=== PATIENT | male | born 1965 | race Caucasian/White ===

== ENCOUNTER 2017-06-01 10:45 | Day surgery (SDC) | payer BC ==
[~2017-06-01 10:45] MED LIST: RINGER'S SOLUTION,LACTATED 1,000 ML IV PRN; ceFAZolin SODIUM 2 GM in DEXTROSE 5 % IN WATER 50 ML IV PRN
[2017-06-01] MEDS ORDERED: BUPIVACAINE HCL/EPINEPHRINE 50 ML VIAL IJ ONE ×2 (12:40)
[2017-06-01] MEDS ORDERED: RINGER'S SOLUTION,LACTATED 1,000 ML IV ONE ×2 (13:08)
[2017-06-01] MEDS ORDERED: BACITRACIN ZINC 30 APPL TUBE TP ONE ×2 (14:05→14:15)
[2017-06-01] MEDS ORDERED: ONDANSETRON HCL/PF 2 MG/ML VIAL IV ONE (14:43)
[2017-06-01] MEDS ORDERED: RINGER'S SOLUTION,LACTATED 1,000 ML IV PRN (14:43)
[2017-06-01] MEDS ORDERED: oxyCODONE HCL/ACETAMINOPHEN 1 TAB TABLET PO ONE (14:43)
[2017-06-01] MEDS ORDERED: MORPHINE SULFATE 2 MG/ML DISP.SYRIN IV PRN (14:43)
[2017-06-01] MEDS ORDERED: oxyCODONE HCL/ACETAMINOPHEN 1 TAB TABLET ONE (16:01)
--- NOTE | 2017-06-01 17:03 | OR ---
Operative Report - Dictated Report Narrative: OPERATIVE REPORT DATE OF OPERATION: 06/01/17 PREOPERATIVE DIAGNOSIS: Left inguinal hernia. No prior dedicated colon studies. Desire for elective permanent sterilization POSTOPERATIVE DIAGNOSIS: Diverticulosis. Indirect left inguinal hernia. OPERATION: Colonoscopy. Repair of left inguinal hernia with Bard mesh plug and patch. Bilateral vasectomy SURGEON: Fortino Clark MD ANESTHESIA: Gen. endotracheal Pawan Coleman CRNA INDICATIONS FOR PROCEDURE: The patient is a 51-year-old male who presented self referred. He has a five-year history of increasingly symptomatic and enlarging left inguinal hernia. He has had no previous dedicated colon studies. He desires elective permanent sterilization FINDINGS: Sigmoid diverticulosis. Indirect left inguinal hernia NARRATIVE OF PROCEDURE: The patient was identified in the holding area, the surgical site was marked, and prior to the administration of anesthetic, a multidisciplinary timeout was observed. The patient was placed supine, SCDs were applied, and 2 g of intravenous Ancef administered. General endotracheal anesthetic was administered. The patient was then placed in the left lateral position with appropriate padding and monitoring, and the perineum was inspected. There was no evidence of pilonidal disease or skin breakdown. The external appearance of the anus was normal. Sphincter tone was good. The flexible fiberoptic colonoscope was inserted into the rectum which was insufflated with air. The rectal mucosa and submucosal vascular pattern appeared normal, the prep was seen to be complete. The scope was advanced through the sigmoid colon, which contained several scattered non-impacted noninflamed diverticular openings. The scope was advanced up the descending colon, and around the splenic flexure where the triangular haustral architecture of the transverse colon was seen. The scope was advanced across the transverse colon, around the hepatic flexure to the cecum, where the confluence of tenia and the ileocecal valve were identified. The mucosa at this level appeared normal. The scope was then slowly withdrawn in a circular fashion so that all aspects of colonic mucosa were inspected. The colon was normal in course and caliber. The haustral architecture appeared well preserved throughout with no evidence of external compression. The mucosa and submucosal vascular pattern appeared normal, specifically there was no gross evidence to suggest colitis or inflammatory bowel disease and no AV malformations were seen. The diverticulosis was mild in degree and confined primarily to the sigmoid colon. No polyps were encountered. The scope was gradually withdrawn to the level of the rectum. As much insufflated air as possible was removed. The scope was withdrawn from the patient and this portion of the procedure terminated. The patient was returned to the supine position without incident. The patient's abdomen and genitalia were prepped with Betadine solution and the left groin and scrotum isolated with 4 sterile towels. The remainder of the patient was covered with a sterile disposable drape. A transverse skin incision was made over the midportion of the left inguinal canal. Dissection was carried through subcutaneous tissue with electrocautery until the fascia of the external oblique aponeurosis was encountered. This was incised in the direction of its fibers down to and including the external inguinal ring. The ilioinguinal nerve was identified and protected throughout the procedure. Cord structures were encircled at the pubic tubercle, and a [place] drain placed for traction. Inspection of the inguinal floor revealed it to be sound out to the inferior epigastric vessels. Inspection of the cord revealed an indirect hernia sac. The sac was opened and 2 forefingers inserted. The sac was then dissected free from the cord structures by blunt dissection back to the internal inguinal ring where properitoneal fat was identified. The neck of the sac was transfixed under direct vision with a suture ligature of 0 Ethibond. Excess sac was amputated, and the neck of the sac redirected superiorly with the same suture of 0 Ethibond. A Bard mesh plug was placed in the defect in the inguinal floor adjacent to the cord and secured circumferentially along the conjoined tendon, and along the shelving border of the inguinal ligament with interrupted sutures of 0 Ethibond. The lateral border of the plug was secured with a suture between the conjoined tendon, lateral border of the plug, and the shelving border of the inguinal ligament to form a new internal inguinal ring. A tailored mesh patch was placed in the inguinal floor and secured circumferentially to the pubic tubercle, along the conjoined tendon, and along the shelving border of the inguinal ligament with interrupted sutures of 0 Ethibond. The wings of the patch were wrapped around the cord structures and secured laterally with additional interrupted sutures of 0 Ethibond. The new internal inguinal ring was found to be of sufficient caliber to admit cord structures without undue constriction. The wound was inspected for hemostasis, which appeared complete. The cord structures and ilioinguinal nerve were returned to an anatomic position. The left vas was then isolated, dissected free for sufficient distance, crossclamped and divided to submit a 1 cm piece for pathology. The divided ends of the vas were cauterized and secured with 3- 0 silk ties. After receiving a correct sponge needle and instrument count attention was turned to closing the wound. The external oblique aponeurosis was approximated with a running suture of 2-0 Vicryl. Subcutaneous tissues were approximated with interrupted sutures of 2-0 chromic. The skin was secured with a running subcuticular suture of 4-0 Vicryl. The operative site was washed and dried. A dressing of Dermabond, folded 4 x 4, and Medipore tape was applied. The scrotum was checked to ensure that the testicles were in anatomic position. The right vas was then isolated between examining fingers high in the right scrotum. A small skin incision was made, the vas was delivered into the wound, and a suitable length developed by blunt dissection. The vas was crossclamped and divided submitting approximately 1 cm for pathology. The transected ends were cauterized and secured with 3-0 silk ties. The area appeared hemostatic. The skin was closed with a vertical mattress suture of 3-0 chromic. A dressing of fluff and scrotal support was applied. The operative procedure was terminated at this point. The patient tolerated the anesthetic and procedure well without complication. There was no measurable blood loss. Segments of the right and left vas were submitted. 0.25 % Marcaine with epinephrine was used for local anesthetic infiltration. The patient was transferred to the recovery room awake, extubated, and in stable condition. The patient remained stable throughout a period of postoperative observation. He was able to tolerate PO intake. His pain was controlled with po Percocet. He was able to ambulate without assistance. The dressing remained dry. He was discharged home with instructions not to lift and not to drive. He is to keep the current dressing dry and intact for 48 hours, but then may shower and change the dressing daily or as needed. The patient was given a prescription for Percocet 5/325 mg #30 1-2 po Q4-6hrs prn pain. The patient has phone numbers to call for questions or prn signs of wound infection or hematoma. A return office appointment was made for 1 week. RECOMMENDATION: Colon surveillance in 10 years depending upon findings and symptoms Reviewed and electronically signed
[2017-06-01 17:15] VITALS: BP 117/73
== END 2017-06-01 10:46 | disposition home or self-care (01) ==
LOC: AMB 10:45
PROVIDERS: ATTEND Surgery
PROC: 0VBQ3ZZ Excision of Bilateral Vas Deferens, Percutaneous Approach (ICD-10-PCS; 2017-06-01)
PROC: 0DJD8ZZ Inspection of Lower Intestinal Tract, Via Natural or Artificial Opening Endoscopic (ICD-10-PCS; principal; 2017-06-01 12:00)
PROC: 0YU60JZ Supplement Left Inguinal Region with Synthetic Substitute, Open Approach (ICD-10-PCS; 2017-06-01 12:00)
DX: Z12.11 Encounter for screening for malignant neoplasm of colon (principal); K57.30 Diverticulosis of large intestine without perforation or abscess without bleeding; K40.90 Unilateral inguinal hernia, without obstruction or gangrene, not specified as recurrent; G47.30 Sleep apnea, unspecified; Z68.27 Body mass index [BMI] 27.0-27.9, adult; Z30.2 Encounter for sterilization